=== PATIENT | male | born 1995 | race Caucasian/White ===

== ENCOUNTER 2016-07-12 19:39 | Emergency (ER) | payer OTHER ==
--- NOTE | ~2016-07-12 | CR230 ---
[facility] [place] A Service of [facility] RADIOLOGY TEXT RESULTS PATIENT: MAKAYLA LANDAVERDE LOCATION: SED : 95 UNIT #: [id number] AGE: [address]: LAM ARMAS SEX: M ORDER DR: [id number] [place] [id number] E MR#: [id number] Acc #: [id number] NAME: MAKAYLA LANDAVERDE. : 1995 SEX: M STUDY DATE/TIME: 07/12/2016 19:01 UNIT: SED ROOM: STUDY DESCRIPTION: CR Shoulder Min 2 View Rt Attending Physician: Lam Armas Ordering Physician: Physician Non-Staff Primary Care Physician: Primary Care Physician No MEDICAL IMAGING REPORT This report is preliminary unless electronic signature is present. EXAM Right shoulder 3 views HISTORY Shoulder pain after injury today. FINDINGS AP view with internal and external rotation of the shoulder girdle shows satisfactory relationship of the humeral head and glenoid fossa. The joint space is normal. There is no identifiable fracture or dislocation or bony destructive process about the shoulder girdle anatomy. The acromioclavicular joint is normal. There is no radiopaque foreign body in the region. IMPRESSION Normal shoulder. Dictated by... Adolfo Barahona M.D. THIS IS AN ELECTRONICALLY VERIFIED REPORT Adolfo Barahona M.D. at 07/12/2016 11:18 PM ROSALBA/eliot TD: 07/12/2016 23:08 JOB #: [id number] MEDICAL IMAGING REPORT Page 1 of 1
[~2016-07-12 19:39] MED LIST: BACTRIM DS TABL1 TA1 PO; FLONASE 0.05% N16 G1; IBUPROFEN800 MG PO; NO MEDICATIONS
== END 2016-07-12 19:46 | disposition home or self-care (01) ==
LOC: SED 19:39
DX: S46.911A Strain of unspecified muscle, fascia and tendon at shoulder and upper arm level, right arm, initial encounter (principal); F17.210 Nicotine dependence, cigarettes, uncomplicated; Z88.0 Allergy status to penicillin; X58.XXXA Exposure to other specified factors, initial encounter; Y92.69 Other specified industrial and construction area as the place of occurrence of the external cause
CPT/HCPCS: 73030; 99283; J1885